=== PATIENT | female | born 1990 | race Caucasian/White ===

== ENCOUNTER 2019-11-01 14:25 | Emergency (ER) | payer OTHER ==
--- NOTE | 2019-11-01 15:47 | ED ---
Asthma - HPI Summary HPI Summary: Patient is a 28 y/o F w/ Hx of asthma who presents to [facility] for asthma exacerbation, with patient reporting SOB, cough, and chest tightness. She states that she had flu-like Sx last week (fever, body aches). Patient notes that she self-diagnosed flu and did not take tamiflu. She reports that her flu- like Sx resolved this past weekend but notes that she began to experience exacerbation of her asthma immediately afterwards. Patient went to [facility] and was prescribed prednisone 40 mg and benzonatate. Sx were severe today , patient took qvar x2 and albuterol x10 [employer] with minimal relief. Pt does not report any fever, chills, erythema of eyes, sore throat, abdominal pain, N/V, dysuria, hematuria, myalgia, edema, rash, or dizziness. On triage, pain is rated 4/10 in severity. On beamster, nothing is noted to aggravate/ alleviate Sx. Home medications and allergies are reviewed. - History of Current Complaint Chief Complaint: EDAsthma Stated Complaint: ASTHMA ATTACK/COLLAPSED PER PT Time Seen by Provider: 11/01/19 15:33 Hx Obtained From: Patient Onset/Duration: Lasting Days, Still Present Current Severity: Moderate Pain Intensity: 4 Pain Scale Used: 0-10 Numeric Aggravating Symptoms: Nothing Alleviating Symptoms: Nothing Associated Signs and Symptoms: Positive: Shortness of Breath, Other - positive - CP and cough; negative - fever, chills, erythema of eyes, sore throat, abdominal pain, N/V, dysuria, hematuria, myalgia, edema, rash, or dizziness - Allergy/Home Medications Allergies/Adverse Reactions: Allergies Allergy/AdvReac Type Severity Reaction Status Date / Time ethinyl estradiol Allergy Rash Verified 11/01/19 14:32 [From Loestrin 1.02/28 (21)] norethindrone acetate Allergy Rash Verified 11/01/19 14:32 [From Loestrin 1.02/28 (21)] Home Medications: Home Medications Albuterol Sulfate [Albuterol Sulfate Hfa] 18 gm IH BID PRN 11/01/19 [History Confirmed 11/01/19] Beclomethasone 80 MCG MDI(NF) [Qvar 80 MCG MDI(NF)] 1 puff .SEE ORDER BID PRN [History Confirmed 11/01/19] Benzonatate CAP* [Tessalon 100 MG CAP*] 100 mg PO TID PRN 11/01/19 [History Confirmed 11/01/19] predniSONE 20 mg TAB [Deltasone 20 MG TAB*] 40 mg PO DAILY 11/01/19 [History Confirmed 11/01/19] PMH/Surg Hx/FS Hx/Imm Hx Respiratory History: Reports: Hx Asthma Sensory History: Denies: Hx Legally Blind, Hx Deafness Opthamlomology History: Denies: Hx Legally Blind EENT History: Denies: Hx Deafness Infectious Disease History: No Infectious Disease History: Denies: Traveled Outside the [place] in Last 30 Days - Family History Known Family History: Negative: Blood Disorder - Social History Alcohol Use: Rare Substance Use Type: Reports: None Smoking Status (MU): Former Smoker Review of Systems Negative: Fever, Chills Negative: Erythema Negative: Sore Throat Positive: Chest Pain Positive: Shortness Of Breath, Cough Negative: Abdominal Pain, Vomiting, Nausea Negative: dysuria, hematuria Negative: Myalgia, Edema Negative: Rash Neurological: Other - negative - dizziness All Other Systems Reviewed And Are Negative: Yes Physical Exam - Summary Physical Exam Summary: Constitutional: Well-developed, Well-nourished, Alert. (-) Distressed Skin: Warm, Dry HENT: Normocephalic; Atraumatic Eyes: Conjunctiva normal Neck: Musculoskeletal ROM normal neck. (-) JVD, (-) Stridor, (-) Tracheal deviation Cardio: Rhythm regular, rate normal, Heart sounds normal; Intact distal pulses; The pedal pulses are 2+ and symmetric. Radial pulses are 2+ and symmetric. (-) Murmur Pulmonary/Chest wall: Diminished breath sounds are noted. (-) Respiratory distress Abd: Soft, (-) tenderness, (-) Distension, (-) Guarding, (-) Rebound Musculoskeletal: (-) Edema Lymph: (-) Cervical adenopathy Neuro: Alert, Oriented x3 Psych: Mood and affect Normal Triage Information Reviewed: Yes Vital Signs On Initial Exam: Initial Vitals Temp Pulse Resp BP Pulse Ox 97.9 F 71 20 134/74 96 11/01/19 14:27 11/01/19 14:27 11/01/19 14:27 11/01/19 14:27 11/01/19 14:27 Vital Signs Reviewed: Yes Procedures - Sedation Patient Received Moderate/Deep Sedation with Procedure: No Diagnostics - Vital Signs Vital Signs Temp Pulse Resp BP Pulse Ox 11/01/19 14:27 97.9 F 71 20 134/74 96 - Laboratory Lab Statement: Any lab studies that have been ordered have been reviewed, and results considered in the medical decision making process. - Radiology CXR Radiology Interpretation Completed By: Radiologist Summary of Radiographic Findings: CXR IMPRESSION: No acute cardiopulmonary process by radiograph. THIS REPORT WAS REVIEWED BY ED PHYSICIAN. - EKG 1615 Cardiac Rate: Bradycardia - rate of 59 BPM EKG Rhythm: Sinus Bradycardia Summary of EKG Findings: EKG showed sinus bradycardia with rate of 59 BPM, no STEMI. ED physician has reviewed and interpreted this EKG. Asthma Course/Dx - Course Course Of Treatment: Patient is a 28 y/o F w/ Hx of asthma who presents to [facility] for asthma exacerbation, with patient reporting SOB, cough, and chest tightness. She states that she had flu-like Sx last week (fever, body aches). Patient notes that she self-diagnosed flu and did not take tamiflu. She reports that her flu-like Sx resolved this past weekend but notes that she began to experience exacerbation of her asthma immediately afterwards. Patient went to [facility] and was prescribed prednisone 40 mg and benzonatate. Sx were severe today, patient took qvar x2 and albuterol x10 [employer] with minimal relief. EKG showed sinus bradycardia with rate of 59 BPM, no STEMI. CXR IMPRESSION: No acute cardiopulmonary process by radiograph. During ED course, patient received magnesium sulfate 1 gm in 100 mls @ 200 mls/hr IV, decadron 8 mg IV SLOW PU and a duoneb treatment. No hypoxia noted, patient ambulated well. There is suspicion that the patients Sx are anxiety related due to her being on prednisone. Patient is anxious in appearance. Patient was discharged to home and will follow up with PCP. - Diagnoses Provider Diagnoses: Asthma exacerbation Discharge ED - Sign-Out/Discharge Documenting (check all that apply): Patient Departure - discharge - Discharge Plan Condition: Stable Disposition: HOME Prescriptions: Albuterol 2.5MG/3ML (0.083%)* [Ventolin 2.5 MG/3 ML NEB.ADELE*] 2.5 mg INH Q6H PRN #60 neb.adele PRN Reason: Wheezing Codeine Phosphate/Guaifenesin [Codeine-Guaifen 10-100 mg/5 ml] 5 ml PO Q8H PRN # 60 ml MDD 15 ML PRN Reason: Cough Nebulizer and Compressor [Liguori Choice Nebulizer] 1 each MC Q4H PRN #1 each PRN Reason: Wheezing Nebulizer and Compressor [Liguori Choice Nebulizer] 1 each MC Q4H PRN #1 each PRN Reason: Wheezing Patient Education Materials: Asthma (ED) [facility] - 3 Days Additional Instructions: PLEASE RETURN TO ED FOR ANY NEW OR WORSENING SYMPTOMS. PLEASE FOLLOW UP WITH YOUR PRIMARY CARE PHYSICIAN WITHIN THREE DAYS. - Attestation Statements Document Initiated by Scribe: Yes Documenting Scribe: JACE SENA Provider For Whom Scribe is Documenting (Include Credential): PIERRE GOFF MD Scribe Attestation: IJACE, scribed for PIERRE GOFF MD on 11/01/19 at 2118. Status of Scribe Document: Ready
[2019-11-01] MEDS ORDERED: Dexamethasone IV* 4 MG/ML 1 ML (4 MG) IV SLOW PU ONE (15:53)
[2019-11-01] MEDS ORDERED: Albuterol/Ipratropium NEB.SOL* Albuterol 2.5 MG/Ipratropium 0.5 MG 3 ML INH ONE (15:53)
[2019-11-01] MEDS ORDERED: Magnesium Sulfate 1 GM IV* 1 GM/100 ML BAG IV ONE (15:53)
[2019-11-01 17:46] VITALS: BP 116/71
== END 2019-11-01 18:30 | disposition home or self-care (01) ==
LOC: ED 14:25
DX: J45.901 Unspecified asthma with (acute) exacerbation (principal); R00.1 Bradycardia, unspecified; Z88.8 Allergy status to other drugs, medicaments and biological substances; Z87.891 Personal history of nicotine dependence
CPT/HCPCS: 71046; 93005; 96365; 96375; 99283; A9270-GY; J1100; J3475